=== PATIENT | male | born 1985 | race Caucasian/White ===

== ENCOUNTER 2016-11-22 18:20 | Emergency (ER) | payer MEDICAID ==
[~2016-11-22] VITALS: Ht 175.3 cm; Wt 104.3 kg
[2016-11-22 19:49] VITALS: BP 114/85
--- NOTE | 2016-11-22 20:17 | NUR ---
TO ER BED 7
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
--- NOTE | 2016-11-22 20:45 | NUR ---
Patient being evaluated by physician at bedside.
[2016-11-22] MEDS ORDERED: ONDANSETRON 4 MG TAB PO ONE (20:55)
--- NOTE | 2016-11-22 21:35 | NUR ---
Patient discharged with v/s stable. Written and verbal after care instructions given and explained. Patient alert, oriented and verbalized understanding of instructions. Ambulatory with steady gait. All questions addressed prior to discharge. ID band removed. Patient advised to follow up with PMD. Rx of ZOFRAN 8 MG given. Patient educated on indication of medication including possible reaction and side effects. Opportunity to ask questions provided and answered.
[2016-11-22 21:41] VITALS: BP 114/85
== END 2016-11-22 21:35 | disposition home or self-care (01) ==
LOC: MED 18:20
DX: A08.4 Viral intestinal infection, unspecified (principal)
CPT/HCPCS: 99283; Q0162

== ENCOUNTER 2020-01-18 02:28 | Emergency (ER) | payer MEDICAID ==
[~2020-01-18] VITALS: Ht 175.3 cm; Wt 99.8 kg
[2020-01-18 02:33] VITALS: BP 120/71
[2020-01-18] MEDS ORDERED: IBUPROFEN 600 MG TAB PO ONE (03:10)
== END 2020-01-18 04:08 | disposition home or self-care (01) ==
LOC: MED 02:28
DX: S63.591A Other specified sprain of right wrist, initial encounter (principal); S60.221A Contusion of right hand, initial encounter; W50.0XXA Accidental hit or strike by another person, initial encounter; Y93.89 Activity, other specified; Y92.89 Other specified places as the place of occurrence of the external cause; Y99.8 Other external cause status
CPT/HCPCS: 29125; 73130; 99283; Q0092

== ENCOUNTER 2020-11-22 10:15 | Emergency (ER) | payer MEDICAID ==
[~2020-11-22] VITALS: Ht 175.3 cm; Wt 99.8 kg
[2020-11-22 10:18] VITALS: BP 143/94
[2020-11-22] MEDS ORDERED: FLUORESCEIN OPTH STRIP 1 MG OP ONE (10:35)
[2020-11-22] MEDS ORDERED: TETRACAINE HCL/PF 0.5% OPTH 4 ML BTL OP ONE (10:35)
[2020-11-22] MEDS ORDERED: POLY10SO OP (10:58)
[2020-11-22 11:19] VITALS: BP 143/94
== END 2020-11-22 11:19 | disposition home or self-care (01) ==
LOC: MED 10:15
DX: H10.33 Unspecified acute conjunctivitis, bilateral (principal)
CPT/HCPCS: 99283

== ENCOUNTER 2020-11-26 14:02 | Emergency (ER) | payer MEDICAID ==
[~2020-11-26] VITALS: Ht 175.3 cm; Wt 99.8 kg
[~2020-11-26 14:02] MED LIST: POLY10SO OP
[2020-11-26 14:06] VITALS: BP 129/88
--- NOTE | 2020-11-26 14:21 | NUR ---
35 Y/O MALE C/O BILATERAL EYE PAIN AND HEADACHE X4DAYS WITH STABBING/BURNING/ STINGING PAIN 10/10 IN BILATERAL EYES. PT HAS NOT TAKEN RX FOR PAIN. PT STATES HE WAS SEEN HERE X4DAYS AGO, PRESCRIBED EYE DROPS WITH NO RELIEF. PT STATES MEDS MADE IT WORSE. PT DENIES N/V, STATES HE HAS BLURRY VISION AND IS SENSITIVE TO LIGHT. BILATERAL EYES ARE WATERY, RED, WITH SWOLLEN EYE LIDS. PT DENIES DISCHARGE. PT DOES NOT WEAR CONTACTS/GLASSES. PT IS A/O X4 WITH EVEN AND UNLABORED RESPIRATIONS. PT LAYING IN BED WITH BED IN LOWEST POSITION, BRAKES LOCKED, X1 SIDERAIL UP. LIGHTS ARE DIMMED FOR PT COMFORT. DENIES PMH NKA
--- NOTE | 2020-11-26 15:13 | NUR ---
RAKAN MILLAN AT BEDSIDE
--- NOTE | 2020-11-26 15:33 | NUR ---
VISUAL ACUITY BOTH EYES 20/15 RIGHT EYE 20/25 LEFT EYE 20/30 NO EYEGLASSES OR CONTACTS
[2020-11-26] MEDS ORDERED: ERYT5OIN58 BOTH EYES (15:39)
[2020-11-26 15:48] VITALS: BP 129/88
--- NOTE | 2020-11-26 15:49 | NUR ---
Patient discharged with v/s stable. Written and verbal after care instructions given and explained. Patient alert, oriented and verbalized understanding of instructions. Ambulatory with steady gait. All questions addressed prior to discharge. ID band removed. Patient advised to follow up with PMD. Rx of erythromycin base given. Patient educated on indication of medication including possible reaction and side effects. Opportunity to ask questions provided and answered.
== END 2020-11-26 15:49 | disposition home or self-care (01) ==
LOC: MED 14:02
DX: H10.9 Unspecified conjunctivitis (principal); H01.006 Unspecified blepharitis left eye, unspecified eyelid; Z79.899 Other long term (current) drug therapy
CPT/HCPCS: 99283

== ENCOUNTER 2021-11-27 21:30 | Emergency (ER) | payer MEDICAID, OTHER ==
[~2021-11-27] VITALS: Ht 175.3 cm; Wt 98.4 kg
[~2021-11-27 21:30] MED LIST changes: +ERYT5OIN58 BOTH EYES
[2021-11-27 21:45] VITALS: BP 162/87
--- NOTE | 2021-11-27 21:50 | NUR ---
PT SENT BACK TO LOBBY.
--- NOTE | 2021-11-27 22:48 | NUR ---
PT TAKEN TO BED 12.
[2021-11-27] MEDS ORDERED: KETOROLAC 30 MG/ML VIAL IM ONE (23:45)
[2021-11-27] MEDS ORDERED: diazePAM 5 MG TAB PO ONE (23:45)
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
[2021-11-28 00:31] LABS: BARBITURATE, URINE NEGATIVE ng/ml (NEG <=200); BENZODIAZEPINE, URINE NEGATIVE ng/mL (NEG <=200); CANNABINOID, URINE POSITIVE ng/mL (NEG <=50); COCAINE, URINE NEGATIVE ng/mL (NEG <=300); OPIATE, URINE NEGATIVE ng/mL (NEG <=2000); PHENCYCLIDINE SCREEN,URINE NEGATIVE ng/mL (NEG <=25)
--- NOTE | 2021-11-28 00:36 | NUR ---
PT RETURN FROM XRAY.
--- NOTE | 2021-11-28 00:46 | NUR ---
PER ERMD NO URINE DIP NEEDED, ORDER CHANGE TO LAB UDS.
--- NOTE | 2021-11-28 00:50 | NUR ---
PT IMPROVES SLIGHT PAIN IMPROVEMENT AT THIS TIME.
[2021-11-28 00:51] LABS: APPEARANCE,URINE CLEAR (CLEAR); BILIRUBIN,URINE NEGATIVE (NEGATIVE); BLOOD, URINE TRACE-I (NEGATIVE); COLOR,URINE YELLOW (YELLOW); LEUKOCYTE ESTERASE ,URINE NEGATIVE (NEGATIVE); NITRITE, URINE NEGATIVE (NEGATIVE); UGLUCOSE NEGATIVE (NEGATIVE)
[2021-11-28 00:58] LABS: RBC,URINE 0-5 /HPF (0-5); WBC,URINE 0-5 /HPF (0-5)
[2021-11-28] MEDS ORDERED: CYCL-711 PO (01:41)
[2021-11-28] MEDS ORDERED: NAPR-54 PO (01:41)
--- NOTE | 2021-11-28 01:58 | NUR ---
PT REPORTS PAIN IMPROVEMENT.
[2021-11-28 02:00] VITALS: BP 112/73
--- NOTE | 2021-11-28 02:00 | NUR ---
Patient discharged with v/s stable. Written and verbal after care instructions given and explained. Patient alert, oriented and verbalized understanding of instructions. Ambulatory with steady gait. All questions addressed prior to discharge. ID band removed. Patient advised to follow up with PMD. Rx of FLEXERIL, NAPROSYN given. Patient educated on indication of medication including possible reaction and side effects. Opportunity to ask questions provided and answered.
== END 2021-11-28 01:59 | disposition home or self-care (01) ==
LOC: MED 21:30
DX: S16.1XXA Strain of muscle, fascia and tendon at neck level, initial encounter (principal); M54.50 Low back pain, unspecified; R51.9 Headache, unspecified; Z79.899 Other long term (current) drug therapy; Z79.1 Long term (current) use of non-steroidal anti-inflammatories (NSAID); Z79.2 Long term (current) use of antibiotics; V89.2XXA Person injured in unspecified motor-vehicle accident, traffic, initial encounter; Y93.89 Activity, other specified; Y92.410 Unspecified street and highway as the place of occurrence of the external cause; Y99.8 Other external cause status
CPT/HCPCS: 72040; 72110; 80305; 81001; 96372; 99284; J1885